=== PATIENT | male | born 1965 | race Caucasian/White ===

== ENCOUNTER 2019-02-07 10:14 | Emergency (ER) | payer BC ==
[~2019-02-07] VITALS: Ht 185.4 cm; Wt 120.2 kg
[2019-02-07 10:25] VITALS: BP_SYST 125
[2019-02-07] MEDS ORDERED: KETOROLAC TROMETHAMINE 30 MG VIAL IM ONE (11:00)
[2019-02-07] MEDS ORDERED: HYDROcodone/ACETAMIN 5-325 MG TAB (NORCO/ VICODIN) PO ONE (11:30)
[2019-02-07] MEDS ORDERED: cefTRIAXone 1 GM in LIDOCAINE 1%, 20 ML MDV 2.1 ML IM ONE (12:15)
[2019-02-07 13:47] VITALS: BP_SYST 122
== END 2019-02-07 13:47 | disposition home or self-care (01) ==
LOC: SED 10:14
DX: M25.562 Pain in left knee (principal)
CPT/HCPCS: 29505; 73564; 96372; 99283; J0696; J1885; J2001